=== PATIENT | female | born 1980 | race Caucasian/White ===

== ENCOUNTER 2020-03-29 09:34 | Emergency (ER) | payer OTHER ==
[2020-03-29 09:41] VITALS: BP 137/89
--- NOTE | 2020-03-29 09:49 | ED Physician Documentation ---
PD HPI UPPER EXT INJURY - Stated complaint Stated Complaint: RT THUMB PX - Chief complaint Chief Complaint: Trauma Ext - History obtained from History obtained from: Patient (Right-handed woman without possibility of . She got her hand caught in a door frame this morning and hyperextended it with a pop and moderate pain in the area of the first MCP of the right hand. No other injuries.) Review of Systems Constitutional: reports: Reviewed and negative Eyes: reports: Reviewed and negative Ears: reports: Reviewed and negative PD PAST MEDICAL HISTORY - Present Medications Home Medications: Ambulatory Orders Medication Instructions Recorded Confirmed Calcium Phosphate Dibas/Vit D3 1 tab ORAL DAILY 03/29/20 03/29/20 [Vitamin J5-Vogtpxx-Kgkz Tablet] Losartan [Cozaar] mg PO DAILY 03/29/20 amLODIPine [Norvasc] mg PO DAILY 03/29/20 hydroCHLOROthiazide [Hydrodiuril] mg ORAL DAILY 03/29/20 - Allergies Allergies/Adverse Reactions: Allergies Allergy/AdvReac Type Severity Reaction Status Date / Time No Known Drug Allergies Allergy Verified 03/29/20 09:41 PD ED PE NORMAL - Vitals Vital signs reviewed: Yes - General General: Alert and oriented X 3, No acute distress - Extremities Extremities: Other (Tender to the first MCP with limited range of motion due to pain. No deformity. No neurovascular compromise at the tip of the first digit. No UCL laxity) - Neuro Neuro: Alert and oriented X 3, Normal speech Results - Vitals Vitals: Vital Signs - 24 hr 03/29/20 09:38 Temperature 36.1 C L Heart Rate 77 Respiratory 20 Rate Blood Pressure 137/89 H O2 Saturation 99 Oxygen O2 Source Room air - Rads (name of study) R hand Radiology: EMP read contemporaneously (neg) Procedures - Regional nerve block Nerve block site: Digital - note digit(s) (1st R finger) Nerve block anesthesia: Lidocaine 1%, Marcaine 0.5% Nerve block aftercare: Excellent anesthesia Departure - Departure Disposition: Home, Self Care Clinical Impression: Sprain of right thumb Qualifiers: Encounter type: initial encounter Sprain of finger site: metacarpophalangeal joint Qualified Code(s): S63.641A - Sprain of metacarpophalangeal joint of right thumb, initial encounter Condition: Good Record reviewed to determine appropriate education?: Yes Instructions: ED Sprain Finger Comments: Wear the splint as needed for comfort. You can certainly remove it for bathing or whenever you feel like you need to. Return for new or worsening symptoms. Follow-up with your doctor in a week if not improved. Tylenol or ibuprofen as needed for pain.
--- NOTE | 2020-03-29 10:28 | XRAY Report ---
PROCEDURE: Hand 3 View RT INDICATIONS: hand inj, 1st MCP area TECHNIQUE: 3 views of the hand(s) acquired. COMPARISON: None FINDINGS: Bones: No fractures or dislocations. No suspicious bony lesions. Soft tissues: No suspicious soft tissue calcifications. IMPRESSION: No fracture. No osseous lesion. If there are persistent symptoms or continued clinical concern for pa thology, then repeat plain film radiographs (7-10 days) or advanced imaging (CT, MR, bone scan) shoul d be considered for further evaluation. Reviewed by: Alayna Herrera MD, PhD on 03/29/2020 9:26 AM [facility] Approved by: Alayna Herrera MD, PhD on 03/29/2020 9:26 AM [facility] Station ID: [id number]
== END 2020-03-29 10:45 | disposition home or self-care (01) ==
LOC: ED 09:34
DX: S63.641A Sprain of metacarpophalangeal joint of right thumb, initial encounter (principal); W23.0XXA Caught, crushed, jammed, or pinched between moving objects, initial encounter
CPT/HCPCS: 64450

== ENCOUNTER 2020-04-19 02:54 | Emergency (ER) | payer OTHER ==
[2020-04-19] MEDS ORDERED: KETOROLAC 30 MG/ML VIAL IVP STA (03:14)
[2020-04-19] MEDS ORDERED: ONDANSETRON 4 MG/2 ML VIAL IVP STA ×2 (03:14→03:28)
[2020-04-19] MEDS ORDERED: HYDROmorphone 1 MG/ML CARPUJECT IVP STA (03:14)
[2020-04-19 03:47] LABS: BASOPHILS % (AUTO) 0.4 %; EOSINOPHILS % (AUTO) 0.4 %; HGB - HEMOGLOBIN 13.9 g/dL (12.0-16.0); LYMPHOCYTES # (AUTO) 1.6 10^3/uL (1.5-3.5); LYMPHOCYTES % (AUTO) 15.3 %; MEAN CORPUSCULAR HEMOGLOBIN 27.9 pg (27.0-31.0); MEAN CORPUSCULAR HGB CONC 32.9 g/dL (32.0-36.0); MEAN CORPUSCULAR VOLUME 84.6 fL (81.0-99.0); MEAN PLATELET VOLUME 9.6 fL (7.9-10.8); MONOCYTES # (AUTO) 0.5 10^3/uL (0.0-1.0); MONOCYTES % (AUTO) 4.7 %; NEUTROPHILS # (AUTO) 8.2 10^3/uL (1.5-6.6); NEUTROPHILS % (AUTO) 78.9 %; PLT - PLATELET COUNT 368 10^3/uL (130-450); RED BLOOD COUNT 4.99 10^6/uL (4.20-5.40); WHITE BLOOD COUNT 10.4 x10^3/uL (4.8-10.8)
--- NOTE | 2020-04-19 03:52 | ED Physician Documentation ---
History of Present Illness - Stated complaint Stated Complaint: ABD PX - Chief complaint Chief Complaint: Abd Pain - History obtained from History obtained from: Patient - Additonal information Additional information: Patient comes emergency department chief complaint of sudden onset of left flank pain radiating into her left lower quadrant that started about 3 hours ago when she got up to urinate. Patient states that she sat on the toilet for an extended period of time, thinking that she just needed to have a bowel movement or pass something and her pain would go away. She states that after 3 hours, the pain did not seem to be getting any better, so she decided to come to the emergency department The patient states that she has not had any fevers or chills. She noticed onset of nausea and some vomiting when the pain started. Patient denies any history of anything like this before. Nothing makes the pain better or worse. Patient states she feels like she just needs to keep moving to try to get away from the pain. She rates her take pain 10 out of 10. She was feeling fine yesterday. She denies any history of kidney stones and has not had any ovarian pathology. She has had an IUD in for several years and also uses oral contraceptives. She is not known to be . Review of Systems Ten Systems: 10 systems reviewed and negative Constitutional: reports: Reviewed and negative Eyes: reports: Reviewed and negative Ears: reports: Reviewed and negative Nose: reports: Reviewed and negative Throat: reports: Reviewed and negative Cardiac: reports: Reviewed and negative Respiratory: reports: Reviewed and negative GI: reports: Abdominal Pain, Nausea, Vomiting : reports: Reviewed and negative Skin: reports: Reviewed and negative Musculoskeletal: reports: Reviewed and negative Neurologic: reports: Reviewed and negative Psychiatric: reports: Reviewed and negative Endocrine: reports: Reviewed and negative Immunocompromised: reports: Reviewed and negative PD PAST MEDICAL HISTORY - Past Medical History Cardiovascular: Hypertension Respiratory: Sleep apnea Neuro: None Endocrine/Autoimmune: None GI: None : None HEENT: None Psych: Depression, Anxiety, Post traumatic stress disorder Musculoskeletal: None Derm: None - Past Surgical History Past Surgical History: Yes HEENT: Tonsil/Adenoidectomy, Other - Present Medications Home Medications: Ambulatory Orders Medication Instructions Recorded Confirmed Calcium Phosphate Dibas/Vit D3 1 tab ORAL DAILY 03/29/20 04/19/20 [Vitamin U1-Cuoabnq-Lacc Tablet] Losartan [Cozaar] 50 mg PO DAILY 03/29/20 04/19/20 amLODIPine [Norvasc] 5 mg PO DAILY 03/29/20 04/19/20 hydroCHLOROthiazide [Hydrodiuril] 25 mg ORAL DAILY 03/29/20 04/19/20 HYDROcod/ACETAM 5/325 [Colquitt 5/325] 1 - 2 ea PO Q6H PRN #15 04/19/20 Ondansetron Odt [Zofran] 4 mg TL Q6H PRN #10 tab 04/19/20 Tamsulosin [Flomax] 0.4 mg PO DAILY #3 04/19/20 - Allergies Allergies/Adverse Reactions: Allergies Allergy/AdvReac Type Severity Reaction Status Date / Time hydromorphone [From Dilaudid] AdvReac Mild Nausea Verified 04/19/20 03:51 - Social History Does the pt smoke?: No Smoking Status: Former smoker Does the pt drink ETOH?: No Does the pt have substance abuse?: No - Immunizations Immunizations are current?: Yes PD ED PE NORMAL - Vitals Vital signs reviewed: Yes - General General: Alert and oriented X 3, Well developed/nourished, Other (Patient is writhing, crying, and looks like she does not feel good.) - HEENT HEENT: Atraumatic, PERRL, EOMI, Moist mucous membranes - Neck Neck: Supple, no meningeal sign - Cardiac Cardiac: RRR, No murmur - Respiratory Respiratory: No respiratory distress, Clear bilaterally - Abdomen Abdomen: Soft, Non tender, Non distended, Other (LLQ benign) - Back Back: No CVA TTP, No spinal TTP - Derm Derm: Normal color, Warm and dry, No rash - Extremities Extremities: No deformity - Neuro Neuro: Alert and oriented X 3 - Psych Psych: Normal mood, Normal affect Results - Vitals Vitals: Vital Signs - 24 hr 04/19/20 04/19/20 03:00 04:38 Temperature 36.5 C 36.4 C L Heart Rate 77 89 Respiratory 20 18 Rate Blood Pressure 140/80 H 134/75 H O2 Saturation 100 98 Oxygen O2 Source Room air - Labs Labs: Laboratory Tests 04/19/20 04/19/20 03:38 03:38 WBC 10.4 RBC 4.99 Hgb 13.9 Hct 42.2 MCV 84.6 MCH 27.9 MCHC 32.9 RDW 13.0 Plt Count 368 MPV 9.6 Neut # (Auto) 8.2 H Lymph # (Auto) 1.6 Dickens # (Auto) 0.5 Eos # (Auto) 0.0 Baso # (Auto) 0.0 Absolute Nucleated RBC 0.00 Nucleated RBC % 0.0 Sodium 139 Potassium 2.8 L Chloride 99 L Carbon Dioxide 22 Anion Gap 18.0 H BUN 13 Creatinine 0.8 Estimated GFR (MDRD) 79 L Glucose 160 H Calcium 10.0 Total Bilirubin 0.5 AST 22 ALT 22 Alkaline Phosphatase 41 L Total Protein 8.1 Albumin 4.5 Globulin 3.6 Albumin/Globulin Ratio 1.3 Lipase 33 - Rads (name of study) CT abd/pelvis Radiology: Final report received, EMP read indepedently, See rad report (4 mm prox L ureteral stone) PD MEDICAL DECISION MAKING - ED course Complexity details: reviewed results, re-evaluated patient, considered differential, d/w patient ED course: The patient was found to be feeling much better after symptomatic treatment with IV fluids, Zofran, Dilaudid, and Toradol. She was also given a dose of Flomax in the emergency department after kidney stone, which I had suspected, was found on her CT scan. I felt the patient was stable for discharge. I discussed with her the timeline range for passage of a stone. We discussed straining her urine and when she should think about following up for this if not passed. We discussed the usual indications for return. I have prescribed her hydrocodone, Flomax, and Zofran for home. Departure - Departure Disposition: 01 Home, Self Care Clinical Impression: Kidney stone on left side Condition: Stable Instructions: ED Stone Renal W Colic Follow-Up: Russell Julien MD [Physician No Access] - Ayala Tyler MD [Provider Admit Priv/Credential] - Prescriptions: Tamsulosin [Flomax] 0.4 mg PO DAILY #3 HYDROcod/ACETAM 5/325 [Colquitt 5/325] 1 - 2 ea PO Q6H PRN #15 PRN Reason: Pain Ondansetron Odt [Zofran] 4 mg TL Q6H PRN #10 tab PRN Reason: Nausea / Vomiting Discharge Date/Time: 04/19/20 04:38
[2020-04-19] MEDS ORDERED: TAMSULOSIN 0.4 MG CAPSULE PO STA (03:57)
[2020-04-19 04:00] LABS: ALBUMIN 4.5 g/dL (3.2-5.5); ALBUMIN/GLOBULIN RATIO 1.3 (1.0-2.2); BILIRUBIN,TOTAL 0.5 mg/dL (0.2-1.0); CREATININE 0.8 mg/dL (0.4-1.0); TOTAL PROTEIN 8.1 g/dL (6.7-8.2)
[2020-04-19] MEDS ORDERED: HYDROcod/ACET 5/325 Prepack 4 PO STA (04:16)
[2020-04-19] MEDS ORDERED: ONDANSETRON ODT 4 MG Prepack 2 TL PRN (04:16)
[2020-04-19 04:40] VITALS: BP 134/75
--- NOTE | 2020-04-19 08:20 | CT Report ---
PROCEDURE: Abdomen/Pelvis WO INDICATIONS: L flank pain TECHNIQUE: Noncontrast 5 mm thick sections acquired from the diaphragms to the symphysis. 5 mm coronal and sagi ttal reformats were then performed. For radiation dose reduction, the following was used: automated exposure control, adjustment of mA and/or kV according to patient size. COMPARISON: None. FINDINGS: Image quality: Excellent. ABDOMEN: Lung bases: Lung bases are clear. Heart size is normal. Solid organs: Liver and spleen are normal in size. Gallbladder appears normal Pancreas is normal i n contours. No adrenal nodules. Kidneys are normal in size, without right-sided hydronephrosis or n ephrolithiasis. There is moderate left-sided hydronephrosis, and proximal hydroureter which leads to a proximal ureteral stone measuring up to 4 x 4 mm, at the axial level of the lower third of the lef t kidney. Below this level the ureters bilaterally are normal in caliber. No distal ureteral stone is seen. Peritoneum and bowel: Unenhanced bowel loops demonstrate normal wall thickness and caliber. No free fluid or air. Nodes and vessels: No retroperitoneal or mesenteric adenopathy by size criteria. Aorta and inferior vena cava are normal in caliber. Miscellaneous: No ventral hernias. PELVIS: Genitourinary: Bladder wall thickness is normal. Miscellaneous: No inguinal hernias or adenopathy. Normal appendix found right lower quadrant. Bones: No suspicious bony lesions. No vertebral body compression fractures. IMPRESSION: Proximal left ureteral stone producing moderate hydronephrosis and proximal left hydroureter, with th e stone measuring 4 x 4 mm. No additional urinary tract stone or other abnormality elsewhere is seen. Reviewed by: Luis Miguel Sanches MD on 04/19/2020 8:19 AM PST Approved by: Luis Miguel Sanches MD on 04/19/2020 8:19 AM PST Station ID: [id number]
== END 2020-04-19 04:38 | disposition home or self-care (01) ==
LOC: ED 02:54
DX: N13.2 Hydronephrosis with renal and ureteral calculous obstruction (principal); Z97.5 Presence of (intrauterine) contraceptive device; I10 Essential (primary) hypertension; Z87.891 Personal history of nicotine dependence
CPT/HCPCS: 36415; 74176; 80053; 83690; 85025; 96374; 96375; 99284; A9270; J1170

== ENCOUNTER 2022-08-29 16:06 | Outpatient (CLI) | payer OTHER ==
--- NOTE | 2022-08-30 10:19 | Ultrasound Report ---
PROCEDURE: Pelvic w/Transvaginal INDICATIONS: ABN UTERINE BLEEDING TECHNIQUE: Real-time scanning was performed of the pelvic organs, with image documentation. Additional endovagi nal scanning was necessary due to incomplete visualization of the adnexal and endometrial structures by transabdominal scanning. COMPARISON: CT abdomen/pelvis 04/19/2020. FINDINGS: Uterus: Uterus is anteverted and enlarged, measuring 11.4 x 5.8 x 7.9 cm. The myometrium is heteroge neous. The endometrium measures 28 mm in combined thickness. Multiple nabothian cysts. Ovaries: The right ovary measures 4.8 x 3.8 x 4.5 cm, with a calculated ovarian volume of 43 cc. Th e left ovary measures 2.8 x 1.4 x 2.5 cm, with a calculated ovarian volume of 5.1 cc. A large simple cyst is seen in the right ovary measuring 3.3 x 3.0 x 4.0 centimeter. Bilateral tubal occlusion devic es noted. Less than 12 follicles can be seen in each ovary. No adnexal masses are seen. No cystic le sions measuring greater than 3 cm. Other: No pathologic free abdominal or pelvic fluid. IMPRESSION: 1.Endometrium is thickened to 28 mm, possibly related to endometrial hyperplasia or endometrial polyp . Recommend clinical correlation. 2.Uterus is enlarged and heterogeneous, nonspecific but can be seen in the setting of adenomyosis. 3.Simple 4.0 cm right ovarian cyst Reviewed by: Dmitriy Gunter MD on 08/30/2022 10:18 AM PDT Approved by: Dmitriy Gunter MD on 08/30/2022 10:18 AM PDT Station ID: [id number]
== END 2022-08-29 16:07 | disposition home or self-care (01) ==
LOC: DI 16:06
PROVIDERS: ATTEND Obstetrics & Gynecology
DX: N93.9 Abnormal uterine and vaginal bleeding, unspecified (principal); R93.89 Abnormal findings on diagnostic imaging of other specified body structures; N85.2 Hypertrophy of uterus; N83.291 Other ovarian cyst, right side

== ENCOUNTER 2023-01-08 08:33 | Outpatient (CLI) | payer OTHER | END 2023-01-08 08:34 | disposition home or self-care (01) | LOC: LAB 08:33 | PROVIDERS: ATTEND Obstetrics & Gynecology | DX: Z01.812 Encounter for preprocedural laboratory examination (principal); N93.9 Abnormal uterine and vaginal bleeding, unspecified; Z97.5 Presence of (intrauterine) contraceptive device | CPT/HCPCS: 86850; 86900; 86901 ==

== ENCOUNTER 2023-01-09 08:52 | Day surgery (SDC) | payer OTHER ==
[2023-01-09] MEDS ORDERED: LACTATED RINGERS 1,000 ML IV ONE ×2 (09:19→12:13)
[2023-01-09 09:21] LABS: HCG UR QUAL NEGATIVE
--- NOTE | 2023-01-09 09:50 | ANESTHESIA ---
Pre-Anesthesia VS, & Labs - Diagnosis abnormal uterine bleeding, essure implant contraceptive - Procedure hysteroscopy, removal essure, lap salpingectomy Vital Signs: Temp Pulse Resp BP Pulse Ox O2 Flow Rate 36.4 C L 82 15 132/97 H 98 01/09/23 09:20 01/09/23 09:20 01/09/23 09:20 01/09/23 09:20 01/09/23 09:20 Height: 5 ft 6 in Weight (kg): 80.6 kg Body Mass Index: 28.6 BMI Classification: Overweight - NPO >8 hours - Is Patient ?: No - Lab Results Lab results reviewed: Yes Home Medications and Allergies Allergies/Adverse Reactions: Allergies Allergy/AdvReac Type Severity Reaction Status Date / Time dragon fruit Allergy Hives Verified 01/05/23 09:39 Anes History & Medical History - Anesthetic History Anesthesia Complications: reports: No previous complications Family history of Anesthesia Complications: Denies Family history of Malignant Hyperthermia: Denies - Medical History Cardiovascular: reports: Hypertension Pulmonary: reports: Sleep apnea Gastrointestinal: reports: None Urinary: reports: None Neuro: reports: None Musculoskeletal: reports: None Endocrine/Autoimmune: reports: None Blood Disorders: reports: None Skin: reports: None Smoking Status: Former smoker History of Cancer?: No - Surgical History Eyes Ears Nose Throat (EENT): reports: Tonsil/Adenoidectomy, Other Exam General: Alert, Oriented x3, Cooperative Dental: WNL Mouth Openin Fingerbreadth Neck Mobility: Normal Mallampati classification: II Thyromental Distance: 4-6 cm Respiratory: Lungs clear, Normal breath sounds, No respiratory distress Cardiovascular: Regular rate Neurological: Normal speech Mental/Cognitive Status: Alert/Oriented X3, Normal for patient Cognitive Status: Within normal limits Plan Anesthesia Type: General Consent for Procedure(s) Verified and Reviewed: Yes Code Status: Attempt Resuscitation ASA classification: 2-Mild systemic disease Is this case an emergency?: No
[2023-01-09] MEDS ORDERED: NALOXONE 0.4 MG/ML VIAL IVP PRN (09:51)
[2023-01-09] MEDS ORDERED: fentaNYL 100 MCG/2 ML VIAL IVP PRN (09:51)
[2023-01-09] MEDS ORDERED: HYDROmorphone 0.5 MG/0.5 ML SYRINGE IVP PRN (09:51)
[2023-01-09] MEDS ORDERED: MORPHINE 2 MG/ML CARPUJECT IVP PRN (09:51)
[2023-01-09] MEDS ORDERED: METOCLOPRAMIDE 10 MG/2 ML VIAL IVP PRN (09:51)
[2023-01-09] MEDS ORDERED: ONDANSETRON 4 MG/2 ML VIAL IVP PRN (09:51)
[2023-01-09] MEDS ORDERED: ATROPINE ABBOJECT 1 MG/10 ML SYRINGE IVP PRN (09:51)
[2023-01-09] MEDS ORDERED: ePHEDrine 50 MG/ML VIAL IVP PRN (09:51)
[2023-01-09] MEDS ORDERED: LIDOCAINE 1%-EPI 1:100000 20 ML MDV ONE (09:59)
[2023-01-09] MEDS ORDERED: BUPIVACAINE 0.5% PF 10 ML VIAL ONE (09:59)
[2023-01-09] MEDS ORDERED: SILVER NITRATE APPLICATOR TOP ONE (09:59)
[2023-01-09] MEDS ORDERED: LACTATED RINGERS 1,000 ML IV SCH (10:00)
[2023-01-09] MEDS ORDERED: MIDAZOLAM 2 MG/2 ML VIAL ONE (10:16)
[2023-01-09] MEDS ORDERED: LIDOCAINE-PF 2% 10 ML AMP SUBQ ONE (10:29)
[2023-01-09] MEDS ORDERED: DEXAMETHASONE 4 MG/ML VIAL ONE (10:39)
[2023-01-09] MEDS ORDERED: BUPIVACAINE 0.5% PF 10 ML VIAL SUBQ ONE ×2 (10:56)
[2023-01-09] MEDS ORDERED: LIDOCAINE 1%-EPI 1:100000 20 ML MDV SUBQ ONE ×2 (10:56)
[2023-01-09] MEDS ORDERED: ROCURONIUM 50 MG/5 ML VIAL ONE (11:32)
[2023-01-09] MEDS ORDERED: ACETAMINOPHEN 1,000 MG/100 ML 1,000 MG/100 ML BAG IV ONE (11:38)
[2023-01-09] MEDS ORDERED: SUGAMMADEX 200 MG/2 ML VIAL IVP ONE (11:42)
[2023-01-09] MEDS ORDERED: KETOROLAC 30 MG/ML VIAL ONE (11:55)
[2023-01-09] MEDS ORDERED: fentaNYL 100 MCG/2 ML VIAL ONE (11:59)
[2023-01-09] MEDS ORDERED: oxyCODONE 5 MG TABLET PO PRN (12:15)
[2023-01-09] MEDS: HYDROmorphone 1 MG/ML CARPUJECT ONE ×2 (12:20→12:40)
--- NOTE | 2023-01-09 12:24 | OPERATIVE REPORT ---
Operative Report - General Procedure Date: 01/09/23 Planned Procedure: Laparoscopic bilateral salpingectomy, Essure removal, hysteroscopy, endometrial ablation Pre-Op Diagnosis: Abnormal uterine bleeding Procedure Performed: Laparoscopic bilateral salpingectomy, Essure removal, hysteroscopy, endometrial ablation Post Op Diagnosis: Abnormal uterine bleeding - Procedure Note Primary Surgeon: Darren Rose MD Secondary Surgeon: KIMMY Olson Anesthesia Provider: Otf Pendleton CRNA Anesthesia Technique: General ET tube Pathology: None IV Fluids (mL): 1,100 Estimated Blood Loss (mL): 20 Urine Output (mL): 0 (Voided prior to procedure) Findings: Normal-appearing uterus, tubes, ovaries. Tubes in size and Esher device seen and removed. Hysteroscopically, had proliferative appearing endometrium, benign appearing cervical polyp. Remainder of Essure device removed from left cornua. Complications: None - Other Other Information/Narrative: Prior to surgery, we discussed the risks, alternatives, benefits to tubal ligation. She already had an Essure device and was already sterile. We di scussed the general risk of surgery including infection, bleeding, damage to other organs, needing a larger incision. Patient desires to proceed with bilateral tubal ligation, easy removal, hysteroscopy, endometrial ablation. Patient was taken to the OR and placed in the dorsal lithotomy position using great white stirrups after adequate anesthesia was obtained. Patient was prepped and draped in the usual fashion. 2 mL of 0.25% Marcaine was used below the umbilicus. An 11 blade scalpel was used to incise the skin. Direct visual entry was used to place the infraumbilical trocar. Upon entering the peritoneal cavity, low flow was used to ensure appropriate positioning. Upon visualization of the abdominal cavity, high flow was then initiated. 2 additional trocars was placed under visualization in a similar fashion in the right and left lower quadrants. After visualization of the right fallopian tube, it was grasped with an atraumatic grasper. The mesosalpinx was cauterized and cut with a Ligasure device. The Essure device was then grasped and gently pulled and removed from the tube. Examining the Essure showed a small portion appeared to be unattached. The remainder of the tube was then cauterized and cut. Attention was then turned to the left fallopian tube which was then removed in a similar fashion. The abdomen was reviewed for hemostasis, and a healthy-appearing liver was noted. The trocars were then removed, and abdomen was evacuated of gas. The trocar sites were then closed with a 4-0 Monocryl in a sub-cuticular fashion and covered with bandages. A bivalve speculum was placed in the vagina and the cervix was visualized and then grasped with a single-tooth tenaculum. Uterus was then dilated to 8 cm with a Hegar dilator. At that point a hysteroscopy was performed noting proliferative appearing endometrium. Hysteroscopy showed normal-appearing cervical canal and uterus, with normal-appearing endometrial lining. Fallopian ostia were visualized and the left coronary had the Essure device protruding from the os. This was grasped with a hysteroscopic grasper and gently removed from the uterus.. The hysteroscope was then removed. The uterus was then dilated to 8 cm with Hegar dilators. Was then sounded to a length of 10 cm and a cervical length of 4.The NovaSure device was then opened and tested. The instrument deployed normally. The instrument was set to the correct cavity length was introduced in the uterine cavity. The fan was deployed with gentle movements measuring 3.3 within the cavity. The cone device was then slid down to the cervix and the device was activated. Total burn time was 60 seconds. The NOVASURE was then retracted and was removed. The fan was examined and revealed charred tissue. Tenaculum was removed cervix examined for hemostasis which was achieved using a sponge stick. The patient tolerated procedure well and was brought to recovery room in good condition. Sponge and instruments were counted and correct. Fluid deficit 695. Patient was taken to the PACU in stable condition. I appreciate the assistance of KIMMY Olson during this procedure, and the assistance in retraction, visualization, dissection, and overall assistance during the case were instrumental to the patient's wellbeing.
[2023-01-09 12:36] VITALS: O2SAT 100
[2023-01-09] MEDS ORDERED: ONDANSETRON 4 MG/2 ML VIAL ONE (12:51)
[2023-01-09 13:43] VITALS: BP 148/87
--- NOTE | 2023-01-09 14:14 | ANESTHESIA POST OP EVALUATION ---
Anesthesia Post Eval - Post Anesthesia Eval Vitals: Last Vital Signs Temp 36 C L 01/09/23 13:30 Pulse 72 01/09/23 13:30 Resp 16 01/09/23 13:30 BP 148/87 H 01/09/23 13:30 Pulse Ox 100 01/09/23 13:30 O2 Flow Rate CV Function Including HR & BP: Stable Pain Control: Satisfactory Nausea & Vomiting: Negative Mental Status: Baseline Respiratory Status: Airway Patent Hydration Status: Satisfactory Anesthesia Complications: None
== END 2023-01-09 08:53 | disposition home or self-care (01) ==
LOC: SDS 08:52
PROVIDERS: ATTEND Obstetrics & Gynecology
PROC: 0UT74ZZ Resection of Bilateral Fallopian Tubes, Percutaneous Endoscopic Approach (ICD-10-PCS; principal; 2023-01-09 10:00)
PROC: 0U5B8ZZ Destruction of Endometrium, Via Natural or Artificial Opening Endoscopic (ICD-10-PCS; 2023-01-09 10:00)
DX: N93.9 Abnormal uterine and vaginal bleeding, unspecified (principal); N84.1 Polyp of cervix uteri; Z97.5 Presence of (intrauterine) contraceptive device; Z87.891 Personal history of nicotine dependence
CPT/HCPCS: 58563; 58661; 81025; J0131; J1170; J7120

== ENCOUNTER 2023-04-02 12:59 | Emergency (ER) | payer OTHER ==
--- NOTE | 2023-04-02 13:38 | ED Physician Documentation ---
History of Present Illness - Stated complaint Stated Complaint: RT KNEE PX - Chief complaint Chief Complaint: Trauma Ext - History obtained from History obtained from: Patient - History of Present Illness Timing: Today Pain level max: 5 Pain level now: 2 - Additonal information Additional information: 42-year-old female presents to the emergency department with right knee pain. She states that she works at a [employer] center and a patient slipped and fell backwards landing on her right knee. Her knee felt like it was pushed inwards. She does not have much pain with palpation. States there is mild swelling. Most of the pain is with walking and twisting on the knee. No numbness or tingling. Review of Systems Constitutional: denies: Fever, Chills GI: denies: Vomiting, Diarrhea Skin: denies: Rash Musculoskeletal: denies: Neck pain, Back pain Neurologic: denies: Headache PD PAST MEDICAL HISTORY - Past Medical History Past Medical History: Yes Cardiovascular: Hypertension Respiratory: Sleep apnea Neuro: None Endocrine/Autoimmune: None GI: None [employer]: None : None HEENT: None Psych: Post traumatic stress disorder Musculoskeletal: None Derm: None - Past Surgical History Past Surgical History: Yes HEENT: Myringotomy (tubes), Tonsil/Adenoidectomy, Other - Present Medications Home Medications: Ambulatory Orders Medication Instructions Recorded Confirmed No Known Home Medications 04/02/23 04/02/23 - Allergies Allergies/Adverse Reactions: Allergies Allergy/AdvReac Type Severity Reaction Status Date / Time dragon fruit Allergy Hives Verified 04/02/23 13:02 - Social History Does the pt smoke?: No Smoking Status: Never smoker Does the pt drink ETOH?: No Does the pt have substance abuse?: No - Immunizations Immunizations are current?: Yes - POLST Patient has POLST: No PD ED PE NORMAL - Vitals Vital signs reviewed: Yes - General General: Alert and oriented X 3, No acute distress - Derm Derm: Warm and dry - Extremities Extremities: Other (R knee - No joint effusion. Mild tenderness along the lateral tibial plateau. No ecchymosis. ACL, MCL, PCL, LCL are intact. Neuro vascular intact. Otherwise normal exam) - Neuro Neuro: Alert and oriented X 3 - Psych Psych: Normal mood, Normal affect Results - Vitals Vitals: Vital Signs - 24 hr 04/02/23 04/02/23 13:02 14:35 Temperature 36.8 C 36.7 C Heart Rate 77 75 Respiratory 16 16 Rate Blood Pressure 138/88 H 133/79 H O2 Saturation 100 99 Oxygen O2 Source Room air - Rads (name of study) R knee xray Relevant Findings:: Final report received, See rad report PD Medical Decision Making - ED course Complexity details: reviewed results, re-evaluated patient, considered differential, d/w patient ED course: No acute findings on x-ray of the right knee. Appears consistent with a knee sprain. L&I paperwork filled out. Placed in articulating knee brace for comfort. Discussed crutches and pain medication, patient declines. I think this is reasonable. We will have her follow-up with her doctor for further care and/or orthopedics. No joint effusion. No evidence of occult tibial plateau fracture at this time. ACL, PCL, LCL, MCL are intact. Patient counseled regarding signs and symptoms for which I believe and urgent re-evaluation would be necessary. Patient with good understanding of and agreement to plan and is comfortable going home at this time This document was made in part using voice recognition software. While efforts are made to proofread this document, sound alike and grammatical errors may occur. Departure - Departure Disposition: 01 Home, Self Care Clinical Impression: Knee sprain Qualifiers: Encounter type: initial encounter Involved ligament of knee: unspecified ligament Laterality: right Qualified Code(s): S83.91XA - Sprain of unspecified site of right knee, initial encounter Condition: Good Instructions: ED Sprain Knee Follow-Up: Igor Segura MD [Primary Care Provider] - Within 1 week Comments: Your xray does not show any fractures today. You appear to have a knee sprain. Please follow up with your doctor for further care. Your MCL, ACL, LCL and PCL appear to be intact on your exam. You can bear weight as tolerated and use motrin/tylenol/aleve for pain. Forms: PCP List Discharge Date/Time: 04/02/23 14:35
--- NOTE | 2023-04-02 14:26 | XRAY Report ---
PROCEDURE: Knee 4+V RT INDICATIONS: fall, knee pain TECHNIQUE: 4 views of the knee(s) were acquired. COMPARISON: None. FINDINGS: Bones: No fractures or dislocations. No suspicious bony lesions. Soft tissues: No knee joint effusion. No suspicious soft tissue calcifications or masses. IMPRESSION: No acute fracture. No osseous lesion. If symptoms and/or clinical suspicion for pathology continue, f urther assessment with repeat plain films, or advanced imaging (e.g., CT, MRI, or bone scan) is recom mended for further assessment. Reviewed by: Sheridan Barcenas MD on 04/02/2023 2:24 PM PST Approved by: Sheridan Barcenas MD on 04/02/2023 2:24 PM PST Station ID: [id number]
[2023-04-02 14:42] VITALS: BP 133/79; O2SAT 99
== END 2023-04-02 14:35 | disposition home or self-care (01) ==
LOC: ED 12:59
DX: S83.91XA Sprain of unspecified site of right knee, initial encounter (principal); X58.XXXA Exposure to other specified factors, initial encounter; Y99.0 Civilian activity done for income or pay; I10 Essential (primary) hypertension
CPT/HCPCS: 1040M; 73564; 99283